=== PATIENT | male | born 1995 | race Two or more races ===

== ENCOUNTER 2024-01-27 22:45 | Emergency (ER) | payer OTHER ==
[~2024-01-27] VITALS: Ht 182.9 cm; Wt 113.4 kg
[2024-01-28] MEDS ORDERED: KETOROLAC TROMETHAMINE 60 MG VIAL IM STA (01:22)
[2024-01-28] MEDS ORDERED: KETO10TA2 PO (03:38)
== END 2024-01-28 04:36 | disposition home or self-care (01) ==
LOC: ER 22:46
DX: R07.89 Other chest pain (principal)